=== PATIENT | male | born 1980 | race Caucasian/White ===

== ENCOUNTER 2023-09-18 07:41 | Outpatient (CLI) | payer OTHER, SELFPAY ==
--- NOTE | ~2023-09-18 | US_ITS ---
US scrotum doppler INDICATION: Palpable right testicular lump TECHNIQUE: Testicular sonogram utilizing grayscale and color Doppler FINDINGS: The testes are normal in size and appearance. No focal lesions are seen. The right testes measures 4.2 x 2.1 x 3.2 cm centimeters, and the left testis measures 4.3 x 1.8 x 2.7 cm cm. There is normal vascular flow to both testes. There is right epididymal cyst measuring 1 cm. Left epididymis is unremarkable. There is no varicocele or hydrocele. IMPRESSION: 1. Right epididymal cyst measuring 1 cm. Reviewed, dictated and finalized at location A. SUPPORT OPERATOR
== END 2023-09-18 07:42 | disposition home or self-care (01) ==
PROVIDERS: PCP Nurse Practitioner Adult Health; Visit Provider Nurse Practitioner Adult Health
DX: N50.3 Cyst of epididymis (principal); N50.89 Other specified disorders of the male genital organs
CPT/HCPCS: 76870; 93976

== ENCOUNTER 2023-11-14 08:05 | Outpatient (CLI) | payer OTHER, SELFPAY ==
[2023-11-14 18:50] LABS: Alanine Aminotransferase 42 U/L (6-50); Albumin Level 4.6 g/dL (3.5-5.1); Alkaline Phosphatase 69 U/L (38-126); Anion Gap 4 mmol/L (4-12); Aspartate Amino Transferase 64 U/L (17-59); Blood Urea Nitrogen 18 mg/dL (9-20); Calcium 9.5 mg/dL (8.4-10.2); Carbon Dioxide 31 mmol/L (22-30); Chloride 103 mmol/L (98-107); Cholesterol 198 mg/dL (0-200); Estimated Glomerular Filt Rate > 60; Glucose 81 mg/dL (65-110); HDL Direct 65 mg/dL; Potassium 4.3 mmol/L (3.4-5.0); Sodium 138 mmol/L (137-145); Triglycerides 57 mg/dL (<150)
[2023-11-14 19:01] LABS: LDL Cholesterol Direct 119 mg/dL
[2023-11-14 19:34] LABS: Hematocrit 50.1 % (42.0-52.0); Hemoglobin 16.2 g/dL (14.0-18.0); Mean Corpuscular HGB Conc 32.3 g/dl (32-36); Mean Corpuscular Hemoglobin 31.7 pg (26-34); Mean Platelet Volume 9.9 fl (7.4-10.4); Platelet Count Result 382 k/mm3 (150-375); Red Blood Count 5.11 M/mm3 (4.6-6.20); Red Cell Distribution Width 13.1 % (11.5-14.5); White Blood Count 5.6 K/mm3 (4.5-10.0)
== END 2023-11-14 08:06 | disposition home or self-care (01) ==
LOC: ANHBWCLAB 08:08
PROVIDERS: PCP Nurse Practitioner Adult Health; Visit Provider Nurse Practitioner Adult Health
DX: Z13.9 Encounter for screening, unspecified (principal)
CPT/HCPCS: 36415; 80053; 80061; 85027

== ENCOUNTER 2024-05-12 11:28 | Outpatient (CLI) | payer OTHER, SELFPAY ==
--- NOTE | ~2024-05-12 | XR_ITS ---
Cervical Spine: AP, lateral, open-mouth views Clinical History: Pain Findings: The normal lordotic curve is maintained. No fracture or sublocation. There is moderate dege nerative disc narrowing at C6-C7. There are minimal facet joint degenerative changes. Pre-vertebral s oft tissues are unremarkable. Impression: Mild degenerative spondylosis overall, as detailed above. Reviewed, dictated and finalized at location . Impression: Mild degenerative spondylosis overall, as detailed above.
--- NOTE | ~2024-05-12 | XR_ITS ---
Right Shoulder Technique: AP and scapular Y views were obtained. Clinical History: Pain Findings: No fracture or dislocation is seen. Osseous alignment is anatomic. The glenohumeral and acr omioclavicular joint spaces are preserved. Soft tissues are unremarkable. Impression: Unremarkable right shoulder radiographs. Reviewed, dictated and finalized at [facility]. Impression: Unremarkable right shoulder radiographs.
== END 2024-05-12 11:29 | disposition home or self-care (01) ==
PROVIDERS: PCP Nurse Practitioner Adult Health; Visit Provider Nurse Practitioner Adult Health
DX: M54.12 Radiculopathy, cervical region (principal); M25.511 Pain in right shoulder
CPT/HCPCS: 72040; 73030

== ENCOUNTER 2024-05-20 12:41 | Outpatient (CLI) | payer OTHER, SELFPAY ==
--- NOTE | ~2024-05-20 | MR_ITS ---
MR cervical spine wo con Ordering provider: Leticia Pierce APRN History: 43 years Male with . neck pain, radiculopathy, Pos spurling test . Comparison: None. Technique: MRI cervical spine without contrast. FINDINGS: CERVICAL SPINAL CORD/CRANIAL CERVICAL JUNCTION: Normal in signal and caliber. CERVICAL VERTEBRAL BODIES: Normal height and alignment. Normal marrow signal. DISK SPACES: Normal. C2-C3: No stenosis. C3-C4: No stenosis. Slight narrowing of the left foramen by disc bulge is noted. C4-C5: No stenosis. Slight narrowing of the right intervertebral foramen at the level of C4-C5. C5-C6: No stenosis. C6-C7: Mild spinal canal stenosis secondary to broad based disc bulge. Bilateral narrowing of the fo ramina with root compression. C7-T1: No stenosis. VISUALIZED PARASPINOUS SOFT TISSUES: Normal. IMPRESSION: 1. Mild spinal canal stenosis at the level of C6-C7 with bilateral narrowing of the foramina and the root compression. 2. No acute osseous abnormality. Reviewed, dictated and finalized at location A. IMPRESSION: 1. Mild spinal canal stenosis at the level of C6-C7 with bilateral narrowing o f the foramina and the root compression. 2. No acute osseous abnormality.
== END 2024-05-20 12:42 | disposition home or self-care (01) ==
LOC: GOSHIMG 12:42
PROVIDERS: PCP Nurse Practitioner Adult Health; Visit Provider Nurse Practitioner Adult Health
DX: M50.123 Cervical disc disorder at C6-C7 level with radiculopathy (principal)
CPT/HCPCS: 72141